=== PATIENT | male | born 1960 | race American Indian/Alaskan Native ===

== ENCOUNTER 2018-12-09 07:16 | Outpatient (CLI) | payer OTHER ==
[2018-12-09 07:50] LABS: Hematocrit 45.3 % (35.5-45.6); Hemoglobin 14.8 gm/dl (11.8-15.2); Mean Corpuscular HGB Conc 33 % (32-34); Mean Corpuscular Volume 87 fl (84-94); Platelet Count 204 K/mm3 (140-440); Red Blood Count 5.21 M/mm3 (3.65-5.03); Red Cell Distribution Width 14.9 % (13.2-15.2)
[2018-12-09 08:34] LABS: Alanine Aminotransferase 31 units/L (7-56); Albumin 4.5 g/dL (3.9-5); BUN/Creatinine Ratio 14; Blood Urea Nitrogen 13 mg/dL (9-20); Calcium 9.5 mg/dL (8.4-10.2); Hemolysis Index 8; LDL Cholesterol,Direct 89 mg/dL (50-130)
[2018-12-09 08:39] LABS: Free T4 (Free Thyroxine) 1.08 ng/dL (0.76-1.46)
[2018-12-09 08:54] LABS: Chol/HDL Ratio 3.14 %; HDL Cholesterol 49 mg/dL (40-59)
--- NOTE | 2018-12-09 08:56 | Fluoroscopy Report ---
Upper GI HISTORY: K21.9 GASTRO-ESOPHAGEAL REFLUX DISEASE. Technique: Single and double contrast barium technique utilized to evaluate the esophagus, stomach, and duodenal C-loop. Findings: To begin the exam, swallowing was evaluated in the lateral position under direct fluorosco py. Swallowing was normal. No mucosal irregularity, mass, mass effect, or critical stenosis. There were no abnormal tertiary c ontractions as seen with dysmotility. There was moderate gastroesophageal reflux reaching the mid eso phagus. Impression: Moderate gastroesophageal reflux. Fluoroscopic time: 2.4 minutes Number of fluoroscopic images: 25 Signer Name: Mathew Puga MD Signed: 12/09/2018 8:52 AM Workstation Name: [id number]
== END 2018-12-09 07:17 | disposition home or self-care (01) ==
LOC: FLUORO 07:16
PROVIDERS: ATTEND Internal Medicine
DX: K21.9 Gastro-esophageal reflux disease without esophagitis (principal)
CPT/HCPCS: 36415; 74247; 80053; 80061; 82785; 84439; 84443; 85027